=== PATIENT | male | born 1955 | race Caucasian/White ===

== ENCOUNTER → 2022-11-01 | Outpatient (CLI) | payer MEDICARE ==
--- NOTE | 2022-11-01 13:40 | CTL ---
EXAMINATION TYPE: CT Low Dose Lung DATE OF EXAM ORDERED: 11/01/2022 HISTORY: Z87.891 [employer]MER [employer]MO[employer]. Lung cancer screening CT DLP: [address] CTDI: 1.49 mGy Automated exposure control for dose reduction was used. SCREENING VISIT: First screening visit COMPARISON: None TECHNIQUE: Low dose computed tomography scan was performed through the chest at 1 mm thick sections a nd reconstructed images in multiple planes at 1 mm and [address] DIAGNOSTIC QUALITY: Satisfactory FINDINGS: LUNG NODULES: Few scattered calcified granulomas. No clinically significant over nodules. LUNGS: COPD: Severity: Mild Fibrosis: Severity: None Lymph nodes: None Other findings: None RIGHT PLEURAL SPACE: Effusion: None Calcification: None Thickening: None Pneumothorax: None LEFT PLEURAL SPACE: Effusion: None Calcification: None Thickening: None Pneumothorax: None HEART: Heart Size: Normal Coronary Calcification: None Pericardial Effusion: None OTHER FINDINGS: Upper abdomen: Posterior right hepatic lobe 2.3 cm cyst. Additional smaller subcentimeter hypodense f ocus within the right hepatic dome which is too small characterize but likely represents a cyst. Mild left hydronephrosis suggested with large 2.4 cm calculus within the renal pelvis. Additional left re nal calculi identified. Bony thorax: No acute osseous abnormality. Bilateral shoulder osteoarthritic changes. Moderate degene rative changes of the thoracic spine. Increased thoracic kyphosis. Dextroscoliotic curvature of the t horacic spine. Supraclavicular region: None Other: None IMPRESSION: 1. No clinically significant pulmonary nodules. 2. Mild left hydronephrosis suggested with large 2.4 cm calculus within the renal pelvis. Additional left renal calculi identified. Consider further evaluation with CT abdomen pelvis. CT LUNG RAD AND CT CHEST RECOMMENDATION: Lung-Rad 2 Benign Appearance or Behavior: Continue annual sc reening with LDCT in 12 months. S Modifier (other clinically significant findings): S
== END | disposition home or self-care (01) ==
LOC: RADCTMAIN 12:38
PROVIDERS: ATTEND Family Medicine
DX: Z12.2 Encounter for screening for malignant neoplasm of respiratory organs (principal); N13.2 Hydronephrosis with renal and ureteral calculous obstruction; Z87.891 Personal history of nicotine dependence
CPT/HCPCS: 71271